=== PATIENT | female | born 1995 | race Caucasian/White ===

== ENCOUNTER → 2024-07-13 | Emergency (ER) | payer OTHER ==
[~2024-07-13] VITALS: Ht 167.6 cm; Wt 90.9 kg
[~2024-07-13] MED LIST: ASPI-4 PO
[2024-07-13 22:29] VITALS: TEMP 99.3
[2024-07-13 22:46] LABS: COVID AG,FIA SOURCE NASAL SWAB
[2024-07-13 23:03] LABS: SARS-COV2 (COVID) ANTIGEN,FIA Negative (Negative)
[2024-07-13 23:26] LABS: INFLUENZA TYPE A NEGATIVE FOR TYPE A (NEGATIVE); INFLUENZA TYPE B NEGATIVE FOR TYPE B (NEGATIVE)
[2024-07-14 00:32] VITALS: BP 110/61; PULSE 88; RESP 15; O2SAT 99
== END | disposition home or self-care (01) ==
LOC: EMS 22:48
DX: R06.02 Shortness of breath (principal); Z79.82 Long term (current) use of aspirin; Z20.822 Contact with and (suspected) exposure to COVID-19
CPT/HCPCS: 87804; 99283